=== PATIENT | male | born 1995 | race Caucasian/White ===

== ENCOUNTER 2017-07-24 16:34 | Emergency (ER) | payer OTHER ==
[~2017-07-24] VITALS: Ht 185.4 cm; Wt 72.6 kg
[2017-07-24] MEDS ORDERED: REMERON15 M2 PO (16:43)
[2017-07-24] MEDS ORDERED: ZOLOFT25 MG PO (16:43)
[2017-07-24] MEDS ORDERED: ROBAXIN500 MG PO (17:29)
[2017-07-24 17:34] VITALS: BP 112/64
== END 2017-07-24 17:35 | disposition home or self-care (01) ==
LOC: M.ERS 16:34
DX: S29.012A Strain of muscle and tendon of back wall of thorax, initial encounter (principal); F17.210 Nicotine dependence, cigarettes, uncomplicated; Z90.49 Acquired absence of other specified parts of digestive tract; W10.8XXA Fall (on) (from) other stairs and steps, initial encounter; Y93.89 Activity, other specified; Y92.89 Other specified places as the place of occurrence of the external cause; Y99.8 Other external cause status

== ENCOUNTER 2017-09-03 18:29 | Emergency (ER) | payer OTHER ==
[~2017-09-03] VITALS: Ht 185.4 cm; Wt 72.6 kg
[~2017-09-03 18:29] MED LIST: REMERON15 M2 PO; ROBAXIN500 MG PO; ZOLOFT25 MG PO
[2017-09-03] MEDS ORDERED: XANAX1 MG PO (18:39)
[2017-09-03 19:14] LABS: ABSOLUTE BASOPHILS 0.1 thou/uL (0.0-0.2); ABSOLUTE EOSINOPHILS 0.1 thou/uL (0.0-0.7); ABSOLUTE LYMPHOCYTES 2.1 thou/uL (0.8-5.3); ABSOLUTE MONOCYTES 0.7 thou/uL (0.0-1.2); ABSOLUTE NEUTROPHILS 5.4 thou/uL (1.6-8.1); BASOPHILS 0.7 %; EOSINOPHILS 1.1 %; HEMATOCRIT 44.3 % (42.0-52.0); HEMOGLOBIN 15.5 gm/dL (14.0-18.0); LYMPHOCYTES 25.4 %; MCH 32.4 pg (26.0-34.0); MCV 92.7 fL (80.0-100.0); MONOCYTES 8.5 %; MPV 8.8 fl. (7.2-11.1); NUCLEATED RBCS 0 /100WBC; PLATELET COUNT* 226 thou/uL (150-400); POLYS 64.3 %; RBC 4.78 mil/uL (4.50-6.00); RDW-CV 12.4 % (10.5-14.5); WBC 8.5 thou/uL (4.0-11.0)
[2017-09-03 19:22] LABS: CALCIUM 9.1 mg/dL (8.5-10.1); CREATININE 0.8 mg/dL (0.6-1.3); POTASSIUM 3.1 mmol/L (3.5-5.1)
[2017-09-03 19:26] LABS: ALBUMIN 4.1 g/dL (3.4-5.0); TOTAL BILIRUBIN 1.6 mg/dL (<0.1-1.0); TOTAL PROTEIN 7.5 g/dL (6.4-8.2)
[2017-09-03 19:46] VITALS: BP 123/86
== END 2017-09-03 19:49 | disposition home or self-care (01) ==
LOC: M.ERS 18:29
PROVIDERS: Nurse Practitioner Family
DX: F45.8 Other somatoform disorders (principal); E87.6 Hypokalemia; F41.9 Anxiety disorder, unspecified; F17.210 Nicotine dependence, cigarettes, uncomplicated; Z90.49 Acquired absence of other specified parts of digestive tract

== ENCOUNTER 2017-12-11 11:52 | Emergency (ER) | payer OTHER ==
[~2017-12-11] VITALS: Ht 182.9 cm; Wt 74.7 kg
[~2017-12-11 11:52] MED LIST changes: +XANAX1 MG PO
[2017-12-11 14:29] LABS: ABSOLUTE EOSINOPHILS 0.1 thou/uL (0.0-0.7); ABSOLUTE LYMPHOCYTES 1.7 thou/uL (0.8-5.3); ABSOLUTE MONOCYTES 0.5 thou/uL (0.0-1.2); ABSOLUTE NEUTROPHILS 3.5 thou/uL (1.6-8.1); BASOPHILS 0.6 %; EOSINOPHILS 1.6 %; HEMATOCRIT 42.2 % (42.0-52.0); HEMOGLOBIN 14.3 gm/dL (14.0-18.0); LYMPHOCYTES 29.5 %; MCH 31.6 pg (26.0-34.0); MCV 92.7 fL (80.0-100.0); MPV 9.7 fl. (7.2-11.1); NUCLEATED RBCS 0 /100WBC; PLATELET COUNT* 259 thou/uL (150-400); POLYS 60.3 %; RBC 4.55 mil/uL (4.50-6.00); RDW-CV 12.3 % (10.5-14.5); WBC 5.8 thou/uL (4.0-11.0)
[2017-12-11 14:34] LABS: ANION GAP 10 mmol/L (7-16); BUN 13 mg/dL (7-18); CALCIUM 8.7 mg/dL (8.5-10.1); CHLORIDE 104 mmol/L (98-107); CO2 26 mmol/L (21-32); CREATININE 0.7 mg/dL (0.6-1.3); GLUCOSE 88 mg/dL (70-99); POTASSIUM 3.5 mmol/L (3.5-5.1); SODIUM 140 mmol/L (136-145)
[2017-12-11 14:41] LABS: ALBUMIN 3.8 g/dL (3.4-5.0); ALKALINE PHOSPHATASE 94 U/L (46-116); SGOT 18 U/L (15-37); SGPT 27 U/L (30-65); TOTAL BILIRUBIN 0.8 mg/dL (<0.1-1.0); TOTAL PROTEIN 7.2 g/dL (6.4-8.2); TROPONIN-I LEVEL <0.06 ng/mL (<0.06)
[2017-12-11] MEDS ORDERED: TRAMADOL 50 MG50 MG PO (16:02)
[2017-12-11] MEDS ORDERED: TORADOL 10 MG T10 MG PO (16:02)
[2017-12-11 16:06] VITALS: BP 110/68
--- NOTE | 2017-12-12 12:57 | EKG ---
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: : 1995 Requested By: Brenna Stephens Order Number: [id number] MD: Deshaun Traore Measurements Intervals [place] Rate: 105 P: 72 VA: 142 QRS: 73 QRSD: 96 T: 16 QT: 353 QTc: 467 Interpretive Statements Sinus tachycardia Probable left atrial enlargement RSR' in V1 or V2, right VCD or RVH Left ventricular hypertrophy Baseline wander in lead(s) I,II,aVR,aVF No previous ECG available for comparison Electronically Signed On 12-12-2017 12:56:52 CDT by Deshaun Traore [email or web address] <ELECTRONICALLY SIGNED> By: Deshaun Traore MD, FAC 12/12/17 [id number] Deshaun Traore MD, [facility] /EPI
== END 2017-12-11 16:12 | disposition home or self-care (01) ==
LOC: M.ERS 11:52
PROVIDERS: Personal Emergency Response Attendant
DX: R09.1 Pleurisy (principal); F41.9 Anxiety disorder, unspecified